=== PATIENT | male | born 1990 | race Caucasian/White ===

== ENCOUNTER 2022-12-23 08:25 | Emergency (ER) | payer OTHER ==
[~2022-12-23] VITALS: Ht 170.2 cm; Wt 86.0 kg
[~2022-12-23 08:25] MED LIST: HYDR-523 PO
[2022-12-23] MEDS ORDERED: DIAZEPAM 5 MG TABLET PO ONE (09:30)
[2022-12-23] MEDS ORDERED: METH-773 MT (10:30)
[2022-12-23] MEDS ORDERED: IBUP-2029 MT (10:30)
[2022-12-23 10:43] VITALS: BP 112/64
== END 2022-12-23 10:45 | disposition home or self-care (01) ==
LOC: ER 08:25
DX: M54.42 Lumbago with sciatica, left side (principal)
CPT/HCPCS: 72100; 99283

== ENCOUNTER 2023-08-06 08:33 | Emergency (ER) | payer OTHER ==
[~2023-08-06] VITALS: Ht 172.7 cm; Wt 91.0 kg
[~2023-08-06 08:33] MED LIST changes: +IBUP-2029 MT; +METH-773 MT
[2023-08-06 08:44] VITALS: BP 140/89; O2SAT 97
[2023-08-06] MEDS ORDERED: ACETAMINOPHEN 500MG TABLET PO ONE (09:00)
[2023-08-06] MEDS ORDERED: BENZ100C86 MT (09:23)
[2023-08-06 09:48] VITALS: PULSE 78; RESP 16
[2023-08-06 09:50] VITALS: TEMP 98.5
== END 2023-08-06 09:35 | disposition home or self-care (01) ==
LOC: ER 08:33
DX: R05.9 Cough, unspecified (principal); Z88.0 Allergy status to penicillin
CPT/HCPCS: 71045; 99283

== ENCOUNTER 2023-09-06 07:33 | Emergency (ER) | payer MEDICAID, OTHER ==
[~2023-09-06] VITALS: Ht 175.3 cm; Wt 81.0 kg
[~2023-09-06 07:33] MED LIST changes: +BENZ100C86 MT
[2023-09-06 07:37] VITALS: BP 122/91; PULSE 82; RESP 20; TEMP 97.8; O2SAT 98
[2023-09-06] MEDS ORDERED: IMOD MT (08:37)
[2023-09-06] MEDS ORDERED: LOPERAMIDE HCL 2MG CAPSULE PO ONE (08:45)
== END 2023-09-06 09:09 | disposition home or self-care (01) ==
LOC: ER 07:33
DX: R19.7 Diarrhea, unspecified (principal); Z88.0 Allergy status to penicillin
CPT/HCPCS: 99282; Z7610